=== PATIENT | female | born 1950 | race African-American/Black ===

== ENCOUNTER 2016-03-19 22:09 | Inpatient (IN) ==
[2016-03-19] MEDS ORDERED: ALUM/MAG/SIMETH/LIDO VISC 1:1 30 ML BOTTLE PO STA (23:50)
[2016-03-19] MEDS ORDERED: SODIUM CHLORIDE 0.9% 1,000 ML IV STA (23:50)
[2016-03-19] MEDS ORDERED: HYDROmorphone 2 MG/1 ML VIAL IV STA (23:50)
[2016-03-19] MEDS ORDERED: ONDANSETRON 4 MG/2 ML VIAL IV STA (23:50)
[2016-03-19] MEDS ORDERED: PANTOPRAZOLE 40 MG VIAL IV STA (23:50)
[2016-03-20] MEDS ORDERED: ONDANSETRON 4 MG/2 ML VIAL ONE (00:45)
[2016-03-20] MEDS ORDERED: PANTOPRAZOLE 40 MG VIAL IV ONE (00:45)
[2016-03-20] MEDS ORDERED: HYDROmorphone 2 MG/1 ML VIAL ONE (00:46)
[2016-03-20] MEDS ORDERED: ALUM/MAG/SIMETH/LIDO VISC 1:1 30 ML BOTTLE PO ONE (00:46)
[2016-03-20 01:15] LABS: Alanine Aminotransferase 16 U/L (13-56); Albumin 4.2 G/DL (3.4-5.0); Alkaline Phosphatase 71 U/L (45-117); Amylase 80 U/L (25-115); Aspartate Amino Transferase 17 U/L (0-37); Bilirubin,Total < 0.39 MG/DL (0.2-1.0); Blood Urea Nitrogen 13 MG/DL (7-18); Calcium 9.2 MG/DL (8.5-10.1); Glucose 134 MG/DL (74-106); Osmolality,Calculated 289.7 MOS/KG (273-304); Potassium 3.6 MMOL/L (3.5-5.1); Sodium 145 MMOL/L (136-145); Total Protein 7.8 G/DL (6.4-8.3); Troponin I Only < 0.015 NG/ML (0.00-0.045)
[2016-03-20 01:36] LABS: Basophils % 0.3 % (0.0-0.8); Eosinophils % 0.3 % (0.00-10.9); Hematocrit 45.6 VOL% (35.7-47.0); Hemoglobin 14.9 GM/DL (12.0-16.0); Immature Granulocytes % 0.4 %; Immature Granulocytes Absolute 0.04 #; Lymphocytes # 1.8 10*3/uL (1.4-4.0); Lymphocytes % 16.4 % (21.3-54.2); Mean Corpuscular HGB Conc 32.7 GM/DL (32-36); Mean Corpuscular Hemoglobin 31 PG (27-34); Mean Corpuscular Volume 93.4 FL (87-102); Monocytes # 0.5 10*3/uL (0.11-0.8); Monocytes % 4.7 % (1.7-12.7); Neutrophils # 8.6 10*3/uL (1.4-7.4); Neutrophils % 77.9 % (38.7-73.9); Platelet Count 262 10*3/uL (130-400); Red Blood Count 4.88 10*6/uL (3.8-5.5); Red Cell Distribution Width 13.1 % (9.3-17.3)
[2016-03-20 02:00] LABS: Apearance,Urine Slightly Hazy (Clear); Bilirubin,Urine Negative (Negative); Blood, Urine Negative (Negative); Glucose,Urine (UA) Negative (Negative); Ketones,Urine 5 mg/dL (Negative); Mucus,Urine Few /LPF (Occasional); Nitrite,Urine Negative (Negative); Protein,Urine 30 MG/DL; RBC,Urine 1 /HPF (0-4); Urine Color Yellow (Yellow); Urine Urobilinogen < 2.0 EU/DL (0.2-1.0); WBC,Urine 1 /HPF (0-6)
--- NOTE | 2016-03-20 03:15 | Emergency Department Note ---
Ariel Mendez Brooke, am scribing for, and in the presence of, Becca Edwards DO 23:57. Jerry Mendez Catherine, DO, personally performed the services described in this documentation, ascribed by Yvette George in my presence, and it is both accurate and complete . Arrival - Arrival Chief Complaint: Abdominal / Flank Pain Stated Complaint: ABDOMINAL PAIN ED Nursing Triage Note: patient to triage with c/o epigastric adb pain that goes all the way through to her back. +N/V. Mode of Arrival: Wheelchair Limitations: No Limitations Source: Patient, Family, RN Notes Reviewed Time Seen by Provider: 03/19/16 23:36 - History of Present Illness HPI Narrative: Patient is a 65 year old female who presents to the ED with c/o epigastric abdominal pain. Shewent to [place] ED, earlier today, and was given a muscle relaxer and omeprazole. Family member says they also done an EKG and xray. Once Patient got home, she took the medications that were prescribed to her and then took a nap. Family member says when the Patient woke up, her pain was worse and that is why they are here. Patient also complains of having nausea and vomiting. She says she has vomited three or four times today. She denies having any fever, chills, diarrhea, or constipation. Patient has PMHx of HTN and dyslipidemia. Onset (ago): day(s) (1) Consistency: constant Severity: moderate Severity scale (1-10): 6 Quality: stabbing, aching, fullness Date of Last Menstrual Period: [facility] Allergies/Adverse Reactions: Allergies Allergy/AdvReac Type Severity Reaction Status Date / Time Amoxicillin [From Augmentin] AdvReac Gastrointestinal Verified 03/19/16 22:21 Upset azithromycin [From Zithromax] AdvReac Gastrointestinal Verified 03/19/16 22:22 Upset clavulanic acid AdvReac Gastrointestinal Verified 03/19/16 22:21 [From Augmentin] Upset naproxen [From Aleve] AdvReac Unknown/Unable Verified 03/19/16 22:21 to obtain Review of System - Review of System 12 point system: reviewed and no additional remarkable complaints except as stated - Review of System Constitutional: Absent: chills, fever Respiratory: Absent: respiratory distress Cardiovascular: Absent: chest pain, orthopnea Gastrointestinal: Present: abdominal pain (epigastric), nausea, vomiting (three or four times today). Absent: diarrhea, constipation Genitourinary female: Absent: dysuria Skin: Absent: rash Neurological: Present: weakness. Absent: headache, numbness, paresthesias, confusion Medical,Surgical,& Family Hx - Medical History Cardio: History of: Hypertension Endocrine: History of: Dyslipidemia - Surgical History Reproductive Surgeries: Surgical HX of;: Hysterectomy - Family History Family History: noncontributory - Social History Smoking Status: Former smoker Have you smoked in the last 12 months: No Frequency of Alcohol Use: None Type of Drug Use: None Marital Status: Unknown Lives With:: Children Functional capacity: independent ambulation Exam Vital Signs: Vital Signs Temperature 97.6 F 03/19/16 22:16 Pulse Rate 71 03/19/16 22:16 Respiratory Rate 18 03/19/16 22:16 Blood Pressure 129/76 03/19/16 22:16 O2 Sat by Pulse Oximetry 97 03/19/16 22:16 - General General appearance: alert, in distress (secondary to her abdominal pain) - Head Head exam: Present: atraumatic, normocephalic - Eye Eye exam: Present: normal appearance, PERRL, EOMI - ENT ENT exam: Present: normal exam, normal oropharynx, mucous membranes moist - Neck Neck exam: Present: normal inspection - Chest Chest inspection: Present: normal inspection, symmetric chest wall rise - Respiratory Respiratory exam: Present: normal lung sounds bilaterally. Absent: accessory muscle use, respiratory distress - Cardiovascular Cardiovascular exam: Present: regular rate, normal rhythm, normal heart sounds - Abdominal Exam Abdominal exam: Present: soft, distention, tenderness, hypoactive bowel sounds, other (Epigastric pain). Absent: guarding, rebound, rigidity - Extremities Exam Extremities exam: Present: normal inspection, full ROM - Back Exam Back exam: Present: normal inspection - Neurological Exam Neurological exam: Present: alert, oriented X3 - Psychiatric Psychiatric exam: Present: normal affect, normal mood - Skin Skin exam: Present: warm, dry, intact, normal color Course Course Narrative: she is resting - i have discussed her ct results with her daughter and she is aware that she is going to be admitted for general surgery evaluation later this morning. - Consultations Consultation #1: Dr. Sejal mauro - we have discussed case and the patient will be admitted for evaluation in the morning. Time: 03:14 Results - Labs CBC & BMP: 03/19/16 23:15 03/19/16 23:15 Lab Results: I have reviewed the patients labs Labs: Laboratory Tests 03/19/16 23:15 Chloride 109 H Glucose 134 H Globulin 3.6 H Lipase 438.0 H Laboratory Tests 03/19/16 03/20/16 23:15 01:55 Neut % (Auto) 77.9 H Lymph % (Auto) 16.4 L Neut # (Auto) 8.6 H Urine Urobilinogen < 2.0 H - EKG EKG results: interpreted by ERMD, no acute changes - Diagnostic Findings Procedure: CT Abdomen and Pelvis: report reviewed by me (Proximal/mid small bowel obstruction with possible left abdominal internal hernia as above. Recommend surgical consultation. Remainder of findings as described above.) Disposition Clinical Impression: Small bowel obstruction Case discussed with: patient, patient's family Disposition: Still a Patient Condition: Stable Time of Disposition: 03:15
[2016-03-20] MEDS ORDERED: ONDANSETRON 4 MG/2 ML VIAL IV PRN ×3 (03:16→18:40)
[2016-03-20] MEDS: SODIUM CHLORIDE 0.9% 1,000 ML IV SCH ×2 (04:26→14:51)
[2016-03-20] MEDS: HYDROmorphone 2 MG/1 ML VIAL IV PRN ×5 (06:46→18:35)
--- NOTE | 2016-03-20 07:24 | CT Report ---
CT abdomen pelvis w con Indication: Abdominal and pelvic pain. CT ABDOMEN AND PELVIS WITH CONTRAST DLP: 665 mGy*cm Comparison: None Technique: Axial CT images of the abdomen and pelvis were obtained with IV contrast; Omnipaque 350, 100 cc. Oral contrast was not administered. Abdomen: Air-fluid levels and borderline small bowel dilatation left midabdomen is present with mesenteric edema noted. This appears to be primarily jejunum and proximal ileum. Transition point is identified left midabdomen. Upstream of this, the duodenum is nondilated the stomach is decompressed. Downstream, there is small amount of stool and gas in the colon. Liver, spleen, pancreas, adrenal glands, gallbladder and kidneys show no acute abnormality. Bibasilar atelectasis noted. Pelvis: Appendix not seen. No right lower quadrant inflammation. Urinary bladder is contracted. Small amount of free fluid in pelvis noted. Uterus is absent. Rectosigmoid colon is unremarkable. Degenerative changes of both hips are moderately severe, with mild arthritic changes of lumbar spine noted. Impression: 1. Dilated small bowel with air-fluid levels and mesenteric edema left midabdomen, consistent with early or partial small bowel obstruction. Internal hernia cannot be excluded. 2. Bibasilar atelectasis. Arthritic changes of the hips. PROCEDURE INTERPRETED AT [facility] Final Report Signed by: New Sarmiento M.D.
--- NOTE | 2016-03-20 08:49 | EKG Report ---
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
[2016-03-20 09:26] LABS: Basophils % 0.1 % (0.0-0.8); Eosinophils % 0.1 % (0.00-10.9); Hematocrit 44.8 VOL% (35.7-47.0); Hemoglobin 14.6 GM/DL (12.0-16.0); Immature Granulocytes % 0.3 %; Immature Granulocytes Absolute 0.03 #; Mean Corpuscular HGB Conc 32.6 GM/DL (32-36); Mean Corpuscular Hemoglobin 30 PG (27-34); Mean Corpuscular Volume 91.6 FL (87-102); Mean Platelet Volume 9.4 FL (9.6-12.0); Monocytes # 0.7 10*3/uL (0.11-0.8); Neutrophils # 8.2 10*3/uL (1.4-7.4); Neutrophils % 75.5 % (38.7-73.9); Platelet Count 266 10*3/uL (130-400); Red Blood Count 4.89 10*6/uL (3.8-5.5); Red Cell Distribution Width 13.2 % (9.3-17.3); White Blood Count 10.9 10*3/uL (4.5-13.71)
[2016-03-20 09:59] LABS: Alanine Aminotransferase 13 U/L (13-56); Albumin 3.7 G/DL (3.4-5.0); Alkaline Phosphatase 68 U/L (45-117); Aspartate Amino Transferase 14 U/L (0-37); Bilirubin,Total < 0.39 MG/DL (0.2-1.0); Blood Urea Nitrogen 11 MG/DL (7-18); Calcium 8.4 MG/DL (8.5-10.1); Glucose 118 MG/DL (74-106); Osmolality,Calculated 287.7 MOS/KG (273-304); Potassium 3.5 MMOL/L (3.5-5.1); Sodium 145 MMOL/L (136-145); Total Protein 6.9 G/DL (6.4-8.3)
--- NOTE | 2016-03-20 10:06 | XRay Report ---
XR chest 1V portable Indication: NG tube placement. Chest/abdomen one view: NG tube extends well into the upper abdomen, Syble clearly beyond the GE junction. Gastric distention is present but mild. Impression: NG tube position as described. PROCEDURE INTERPRETED AT [facility] DEPARTMENT OF RADIOLOGY Final Report Signed by: New Sarmiento M.D.
--- NOTE | 2016-03-20 12:31 | Fluoroscopy Report ---
FL small bowel series Indication: Small bowel obstruction. Small bowel follow-through: Oral contrast (Gastrografin) was administered. Sequential images of the abdomen were obtained. Over a two-hour. Time, no transit to small bowel identified. Gaseous distention bordering on dilation of central small bowel is present. Some stool and gas is shown the colon. Impression: After 2 hours, no transit from the stomach. Severe gastric outlet obstruction and/or ileus. Consider repeat attempt at small bowel follow-through after a period of NG tube decompression. PROCEDURE INTERPRETED AT [facility] DEPARTMENT OF RADIOLOGY Final Report Signed by: New Sarmiento M.D.
--- NOTE | 2016-03-20 13:58 | General Surg History&Physical ---
Assessment and Plan (1) Small bowel obstruction Status: Acute Assessment and plan: The patient has no passes of contrast out of her stomach after hour and half Gastrografin administration. The NG tube. This is concerning that the small bowel obstruction may need to have operative intervention. We will monitor her abdominal exam closely today but I think there is a chance we may have to take her to surgery today if she worsens at all. In the meantime we will continue IV fluid resuscitation and attempt nonoperative management if possible. She is not tachycardic and she has normal white blood cell count and no other lab derangements I think we can at least give her some attempt at nonoperative management. Current Visit: Yes History of Present Illness Chief complaint: abdominal pain History of present illness: Ms. Baig is a 65 year old female with a history of prior hysterectomy and diverticulitis treated with antibiotics in the distant past who presents to the hospital with decreased stool output and abdominal pain with abdominal distention over the past 2 days. Her last normal bowel movement was Monday and she has not had a bowel movement or passed gas since then. She has been having increasing abdominal distention with abdominal pain and had 3 episodes of vomiting last night there was green colored. A CT scan was performed as well as lab work which reveals a small bowel obstruction with decompressed distal bowel and colon. Lab work is normal and the patient is not tachycardic. She improved somewhat overnight with pain medication. I repeated a small bowel series with Gastrografin today and it never left her stomach and she was complaining of increased pain so the study was terminated after an hour and a half and nothing left the stomach. Home Medications Medication Instructions Recorded Confirmed Type Amlodipine Besylate 1 tablet PO DAILY W/SUPPER 03/20/16 03/20/16 History Cyclobenzaprine [Flexeril] 1 tablet PO TID PRN 03/20/16 03/20/16 History Esomeprazole Magnesium 20 mg PO DAILY 03/20/16 03/20/16 History [Esomeprazole] Lisinopril/Hydrochlorothiazide 2 each PO DAILY 03/20/16 03/20/16 History [Lisinopril-Hctz 10-12.5 mg Tab] Lovastatin 20 mg PO DAILY W/SUPPER 03/20/16 03/20/16 History Travoprost 0.004% Oph Soln 1 drop BOTH EYES BEDTIME 03/20/16 03/20/16 History [Travatan Z] Allergies Allergy/AdvReac Type Severity Reaction Status Date / Time Amoxicillin [From Augmentin] AdvReac Gastrointestinal Verified 03/19/16 22:21 Upset azithromycin [From Zithromax] AdvReac Gastrointestinal Verified 03/19/16 22:22 Upset clavulanic acid AdvReac Gastrointestinal Verified 03/19/16 22:21 [From Augmentin] Upset naproxen [From Aleve] AdvReac Unknown/Unable Verified 03/19/16 22:21 to obtain Medical,Surgical,& Family Hx - Medical History Cardio: History of: Hypertension Endocrine: History of: Dyslipidemia Gastrointestinal: History of: Bowel Obstruction (diagnosis this admission) - Surgical History Reproductive Surgeries: Surgical HX of;: Hysterectomy - Family History Family History: Reports;: Family Cancer (two aunts), Family Diabetes (aunt), Family Hypertension (mother, father, siblings), Family Stroke (sister, aunt) - Social History Smoking Status: Former smoker Frequency of Alcohol Use: None Type of Drug Use: None Exam - Constitutional Vitals: Period Temp Pulse Resp BP Sys/Holt Pulse Ox Last 24 Hr 98.4 F-98.9 F 81-108 16-18 133-163/81-98 96-99 General appearance: no acute distress, over weight - Head Head exam: Present: normal inspection, normocephalic - Eye Eye exam: Present: EOMI Pupils: Present: CHIVO - ENT ENT exam: Present: normal exam Mouth exam: Present: normal external inspection, normal voice - Neck Neck exam: Present: normal inspection, trachea midline - Respiratory Respiratory exam: Present: clear to auscultation bilaterally. Absent: accessory muscle use, chest wall tenderness - Cardiovascular Cardiovascular exam: Present: RRR. Absent: systolic murmur, tachycardia - GI/Abdominal GI/Abdominal exam: Present: distended, hypoactive bowel sounds, tenderness, soft. Absent: guarding, rebound - Extremities Exam Extremities exam: Present: normal inspection, normal capillary refill - Back Exam Back exam: Present: normal inspection - Neurological Exam Neurological exam: Present: alert, oriented X3 Speech: Present: normal - Skin Skin exam: Present: normal color, warm - Constitutional Constitutional: Present: as per HPI - EENT Nose, mouth and throat: Present: as per HPI - Cardiovascular Cardiovascular: Present: as per HPI - Respiratory Respiratory: Present: as per HPI - Gastrointestinal Gastrointestinal: Present: as per HPI - Genitourinary Genitourinary: Present: as per HPI - Musculoskeletal Musculoskeletal: Present: as per HPI - Neurological Neurological: Present: as per HPI - Endocrine Endocrine: Present: as per HPI Hematologic/Lymphatic: Present: as per HPI Results - Labs CBC & BMP: 03/20/16 09:20 03/20/16 09:20 - Diagnostic Findings Procedure: CT Abdomen and Pelvis: image reviewed by me, report reviewed by me, X -ray: image reviewed by me, report reviewed by me
[2016-03-20] MEDS ORDERED: FAMOTIDINE 20 MG TABLET PO ONE (14:34)
[2016-03-20] MEDS: LACTATED RINGERS 1,000 ML IV SCH ×4 (14:51→19:54)
--- NOTE | 2016-03-20 14:59 | Event Note ---
The patient had a NG tube placed and we attempted a small bowel series today. My initial note actually reflected a clinical encounter had with the patient before these studies were done around 7 in the morning. I just went back and saw her right before riding this node and she has worsening abdominal pain with increasing heart rate and she is now tachycardic in the 100s. I have recommended proceeding with operative intervention for her bowel obstruction due to worsening clinical status with nonoperative management. The patient is agreeable to this we will take her to the operating room for a laparoscopic with possibility of open lysis of adhesions and possible bowel resection. She will be resuscitated with IV fluids and we will take her to the operating room now.
[2016-03-20] MEDS ORDERED: LIDOCAINE 2% 5 ML VIAL ONE (16:56)
[2016-03-20] MEDS ORDERED: ROCURONIUM 100 MG/10 ML VIAL IV ONE (16:56)
[2016-03-20] MEDS ORDERED: HEPARIN/NACL 0.9% 2 UNITS/ML 500 ML IV ONE (16:56)
[2016-03-20] MEDS ORDERED: SUCCINYLCHOLINE 200 MG/10 ML VIAL ONE (16:56)
[2016-03-20] MEDS ORDERED: PROPOFOL 200 MG/20 ML VIAL IV ONE (16:56)
[2016-03-20] MEDS ORDERED: PHENYLEPHRINE DRIP 20 MG/250 ML PREMIX IV ONE (16:56)
[2016-03-20] MEDS ORDERED: LIDOCAINE 1%/EPI INJ 20 ML VIAL ONE (17:01)
[2016-03-20] MEDS ORDERED: BUPIVACAINE MPF 0.25% /EPI 30 ML VIAL ONE (17:01)
[2016-03-20 17:32] LABS: ABG Base Excess -1.7 MMOL/L (-2.5-2.5); ABG Oxygen Saturation 99.8 % (95-100); ABG PCO2 30.5 MM HG (35-48); ABG PH 7.449 (7.35-7.45); ABG TCO2 18.2 MMOL/L (23-27); Glucose Heart Surgery 144 MG/DL (74-106); Hematocrit Heart Surgery 42.4 PERCENT (37-47); Hemoglobin Heart Surgery 13.8 G/DL (12.0-16.0); PCO2 Patient Temp Arterial 30.5 MMHG; PH Patient Temp Arterial 7.449; Patient Temperature 37 CELCIUS; Potassium Heart/CVR 3.7 MMOL/L (3.5-5.1); Sodium Heart/CVR 140 MMOL/L (135-145)
--- NOTE | 2016-03-20 18:22 | Anesthesia ---
Anesthesia Post OP - Post Ansesthetic Evaluation Patient seen in post op: Yes Resp: within normal limits CV: within normal limits Mental: within normal limits Temp: within normal limits [id number]-[id number]: within normal limits Nausea and Vomiting: within normal limits Pain: within normal limits
[2016-03-20 18:24] LABS: Apearance,Urine Slightly Hazy (Clear); Bilirubin,Urine Negative (Negative); Blood, Urine Negative (Negative); Glucose,Urine (UA) 50 mg/dL (Negative); Ketones,Urine Negative (Negative); Mucus,Urine Moderate /LPF (Occasional); Nitrite,Urine Negative (Negative); Protein,Urine 30 MG/DL; RBC,Urine 1 /HPF (0-4); Squamous Epithelial Cell,Urine Occasional /HPF (0-10); Urine Color Yellow (Yellow); Urine Specific Gravity 1.038 (1.001-1.035); Urine Urobilinogen < 2.0 EU/DL (0.2-1.0); WBC,Urine 2 /HPF (0-6)
[2016-03-20] MEDS ORDERED: ALBUMIN 5% 12.5 GM/250 ML VIAL IV ONE (18:27)
[2016-03-20] MEDS ORDERED: fentaNYL 100 MCG/2 ML VIAL ONE (18:27)
[2016-03-20] MEDS ORDERED: LACTATED RINGERS 2,000 ML IV ONE (18:27)
[2016-03-20] MEDS ORDERED: MIDAZOLAM 2 MG/2 ML VIAL ONE (18:27)
[2016-03-20] MEDS ORDERED: SEVOFLURANE 1 UNIT/15 MINUTE INH ONE (18:27)
[2016-03-20] MEDS ORDERED: SODIUM CHLORIDE 0.9% 250 ML IV ONE (18:27)
--- NOTE | 2016-03-20 18:38 | Operative Note ---
Date of procedure: 03/20/16 Pre-op diagnosis: small bowel obstruction Post-op diagnosis: same Procedure: Preoperative diagnosis Small bowel obstruction Postoperative diagnosis Same Procedures performed 1. Diagnostic laparoscopy 2. Exploratory laparotomy with lysis of adhesions Findings An internal hernia was found with a compromised piece of small intestine herniating through the defect. Once the small bowel was completely reduced from the internal hernia and lysis of adhesions was completed, there was no residual internal hernia defects or adhesive bands left in the abdomen. There was a segment of bowel that initially looked dusky but once it was reduced from the internal hernia it pinked up nicely and did not appear to have any areas of necrosis. The bowel was inflamed and erythematous but it appeared viable. Complications None apparent Anesthesia EDILBERTO Santos Blood loss 10 mL Indications This patient is a 65-year-old woman with a history of a hysterectomy and a prior history of non-comp located diverticulitis managed medically who presented to the hospital with a small bowel obstruction. She was treated nonoperatively with NG tube decompression and observation but her exam worsened during the course of the day and she became tachycardic. I recommended laparoscopic versus open lysis of adhesions with possible bowel resection. Description of procedure The patient was taken to the operating room and transferred to the operating table in the supine position. Pressure points were padded and SCDs were placed to the bilateral lower extremities. A Marr catheter was placed with minimal urine output obtained and appeared concentrated. The abdomen was prepped with chlorhexidine and draped sterilely. Preoperative antibiotics were administered , and a timeout was performed. A supraumbilical incision was made with an 11 blade scalpel and a [place] clamp was used to grasp the umbilical stalk. A Veress needle was used to enter the peritoneal cavity. Aspiration was negative. Saline drop test confirmed intraperitoneal location. The abdomen was insufflated to 15 mmHg and an initial pressure of 4 mmHg. The Veress needle was removed and a 5 mm trocar was placed blindly. A diagnostic laparoscopy revealed no evidence of Veress needle or trocar injury. There was adhesions to the midline between the omentum and the peritoneum and on visualization of the left upper quadrant there is a long segment of small bowel that appeared edematous and dusky. The patient developed some hypotension and worsening hemodynamics and I thought the safest thing to do was to convert to an open procedure at that point in time. The 5 mm trocar was removed and the CO2 was released from the abdomen. A midline incision was made with a 10 blade scalpel and Bovie electrocautery was used to dissected the subcutaneous tissues and open the fascia. An exploratory laparotomy was performed. The small bowel was reduced from the hernia defect and initially appeared dusky with erythema and significant edema. Once reduced, the bowel started to pink up and looked viable. The remainder of the exploration revealed multiple adhesions between the sigmoid colon and the transverse colon which were thought to be potentially the cause of the internal hernia. Adhesions between the omentum and the abdominal wall were also lysed with sharp dissection. There was no adhesive bands seen between the omentum and any portion of the abdominal cavity. The small bowel was fully evaluated after lysis of adhesions was completed from the ligament of Treitz to the ileocecal valve. Once the obstruction was relieved the distal bowel started to fill with bowel contents and a final inspection of the bowel appeared no evidence of compromise of the intestine. The small bowel was placed back into the peritoneal cavity in its anatomic position and the abdomen was suction until all the edema fluid was removed. The midline fascia was closed with a #1 PDS suture. The skin incision was irrigated and closed with skin clips. A sterile dressing was applied. The patient was extubated and transferred to the ICU to monitor her resuscitation and she made minimal output during the operation. Her Marr catheter was left in place. Postoperative plan Continue IV fluid resuscitation Await return of bowel function Anesthesia: EDILBERTO Surgeon / Physician: Bandar Post Estimated blood loss: minimal Specimens: none sent Condition: stable Disposition: ICU Results - Labs CBC & BMP: 03/20/16 17:30 03/20/16 09:20 Discharge Plan - Discharge Medications No Action Lovastatin 20 mg PO DAILY W/SUPPER Lisinopril/Hydrochlorothiazide [Lisinopril-Hctz 10-12.5 mg Tab] 2 each PO DAILY Amlodipine Besylate 1 tablet PO DAILY W/SUPPER Esomeprazole Magnesium [Esomeprazole] 20 mg PO DAILY Travoprost 0.004% Oph Soln [Travatan Z] 1 drop BOTH EYES BEDTIME Cyclobenzaprine [Flexeril] 1 tablet PO TID PRN PRN Reason: Muscle Spasm - Follow Up or Referral - Forms/Instructions
[2016-03-20] MEDS ORDERED: CYCLOBENZAPRINE 10 MG TABLET PO PRN (18:40)
[2016-03-20] MEDS ORDERED: LACTATED RINGERS 1,000 ML IV ONE (18:40)
[2016-03-20] MEDS ORDERED: LABETALOL 20 MG/4 ML SYRINGE IV ONE (18:53)
[2016-03-20] MEDS: HYDROmorphone PCA 30 MG/30 ML SYRINGE IV SCH (18:53)
--- NOTE | 2016-03-20 20:09 | Event Note ---
General Surgery Progress Note Chief complaint This patient is a 65-year-old woman admitted with small bowel obstruction failed nonoperative management and taken to the operating room on 03/20/2016 for diagnostic laparoscopy and exploratory laparotomy with lysis of adhesions Interval history The patient is doing well nicely. Her urine output is clear and his responded well to resuscitation. She is afebrile with hypertension and otherwise normal vital signs. Physical exam Afebrile, normal vital signs The patient's resting comfortably in bed and has clear urine output and the Marr catheter. Assessment and plan Continue pain medication Incentive spirometry Repeat labs in the morning
[2016-03-20] MEDS: TRAVOPROST 0.004% OPH SOLN 2.5 ML BOTTLE BOTH EYES SCH (21:52)
[2016-03-21] MEDS: LACTATED RINGERS 1,000 ML IV SCH ×4 (03:14→19:22)
[2016-03-21 03:37] LABS: Basophils % 0.1 % (0.0-0.8); Eosinophils % 0.1 % (0.00-10.9); Hematocrit 42.2 VOL% (35.7-47.0); Hemoglobin 13.6 GM/DL (12.0-16.0); Immature Granulocytes % 0.4 %; Immature Granulocytes Absolute 0.06 #; Lymphocytes # 2.3 10*3/uL (1.4-4.0); Lymphocytes % 16.1 % (21.3-54.2); Mean Corpuscular HGB Conc 32.2 GM/DL (32-36); Mean Corpuscular Hemoglobin 31 PG (27-34); Mean Corpuscular Volume 94.8 FL (87-102); Mean Platelet Volume 10.2 FL (9.6-12.0); Monocytes # 1.2 10*3/uL (0.11-0.8); Monocytes % 8.6 % (1.7-12.7); Neutrophils # 10.5 10*3/uL (1.4-7.4); Neutrophils % 74.7 % (38.7-73.9); Platelet Count 232 10*3/uL (130-400); Red Blood Count 4.45 10*6/uL (3.8-5.5); Red Cell Distribution Width 13.5 % (9.3-17.3); White Blood Count 14.1 10*3/uL (4.5-13.71)
[2016-03-21 04:21] LABS: Calcium 7.4 MG/DL (8.5-10.1); Osmolality,Calculated 293.4 MOS/KG (273-304)
[2016-03-21] MEDS ORDERED: LACTATED RINGERS 1,000 ML IV ONE ×2 (07:39→10:37)
[2016-03-21] MEDS ORDERED: NON-FORMULARY MEDICATION (Esomeprazole Magnesium [Esomeprazole] 20 MG) PO SCH (09:00)
[2016-03-21] MEDS: PANTOPRAZOLE 40 MG VIAL IV SCH (09:20)
--- NOTE | 2016-03-21 10:38 | Event Note ---
General Surgery Progress Note Chief complaint This patient is a 65-year-old woman admitted with small bowel obstruction failed nonoperative management and taken to the operating room on 03/20/2016 for diagnostic laparoscopy and exploratory laparotomy with lysis of adhesions Interval history The patient became a little more tachycardic overnight and her urine output was low today. 1 L bolus of lactated Ringer's was given her urine output picked up some tachycardia improved. Her pain is well-controlled. Her lab work is reviewed and her creatinine is 1.0.8 yesterday with white blood cell count is gone up to 14,000 and relatively stable hemoglobin. Physical exam Afebrile, normal vital signs after IV fluid resuscitation Chest is clear next an heart is regular and tachycardic Abdomen soft and appropriately tender with a clean dressing and hypoactive bowel sounds NG tube has bilious output The urine in the Marr catheter is concentrated Assessment and plan Continue pain medication Continue IV fluid resuscitation as needed Incentive spirometry Repeat labs in the morning
[2016-03-21] MEDS: ENOXAPARIN 40 MG/0.4 ML SYRINGE SUBCUT SCH (12:29)
[2016-03-21] MEDS: amLODIPine 5 MG TABLET PO SCH (17:43)
[2016-03-21] MEDS: LOVASTATIN 20 MG TABLET PO SCH (17:44)
[2016-03-21] MEDS: TRAVOPROST 0.004% OPH SOLN 2.5 ML BOTTLE BOTH EYES SCH (21:37)
[2016-03-22] MEDS: LACTATED RINGERS 1,000 ML IV SCH ×4 (00:07→14:31)
[2016-03-22 01:21] LABS: Basophils % 0.2 % (0.0-0.8); Eosinophils % 0.4 % (0.00-10.9); Hematocrit 34.7 VOL% (35.7-47.0); Hemoglobin 10.8 GM/DL (12.0-16.0); Immature Granulocytes % 0.5 %; Immature Granulocytes Absolute 0.05 #; Lymphocytes # 2.8 10*3/uL (1.4-4.0); Lymphocytes % 25.7 % (21.3-54.2); Mean Corpuscular HGB Conc 31.1 GM/DL (32-36); Mean Corpuscular Hemoglobin 29 PG (27-34); Mean Corpuscular Volume 94.3 FL (87-102); Mean Platelet Volume 9.9 FL (9.6-12.0); Monocytes # 1.2 10*3/uL (0.11-0.8); Monocytes % 10.6 % (1.7-12.7); Neutrophils # 6.9 10*3/uL (1.4-7.4); Neutrophils % 62.6 % (38.7-73.9); Platelet Count 186 T/CUMM (130-400); Red Blood Count 3.68 MC/CUMM (3.8-5.5); Red Cell Distribution Width 13.4 % (9.3-17.3)
[2016-03-22 01:47] LABS: Calcium 7.8 MG/DL (8.5-10.1); Magnesium 1.9 MG/DL (1.8-2.4); Osmolality,Calculated 289.6 MOS/KG (273-304); Potassium 3.9 MMOL/L (3.5-5.1)
[2016-03-22] MEDS: HYDROmorphone PCA 30 MG/30 ML SYRINGE IV SCH ×2 (05:37→19:27)
--- NOTE | 2016-03-22 11:16 | Event Note ---
General Surgery Progress Note Chief complaint This patient is a 65-year-old woman admitted with small bowel obstruction failed nonoperative management and taken to the operating room on 03/20/2016 for diagnostic laparoscopy and exploratory laparotomy with lysis of adhesions Interval history The patient is doing better today. She denies any flatus or bowel movements. Her NG tube had minimal output. Her pain is better controlled. Urine output has picked up adequately. Creatinine is down trending. Physical exam Afebrile, normal vital Chest is clear Heart is regular Abdomen soft and appropriately tender with a clean dressing and hypoactive bowel sounds The urine in the Marr catheter is clear Assessment and plan Continue pain medication change to maintenance fluids Incentive spirometry transfer to floor DVT chemoprophylaxis Repeat labs in the morning
[2016-03-22] MEDS: PANTOPRAZOLE 40 MG VIAL IV SCH (14:30)
[2016-03-22] MEDS: ENOXAPARIN 40 MG/0.4 ML SYRINGE SUBCUT SCH (14:31)
[2016-03-22] MEDS: DEXT 5% NACL 0.45% KCL 40 MEQ 40 MEQ/1,000 ML BAG IV SCH ×2 (14:32→23:10)
[2016-03-22] MEDS: amLODIPine 5 MG TABLET PO SCH (17:09)
[2016-03-22] MEDS: LOVASTATIN 20 MG TABLET PO SCH (17:09)
[2016-03-22] MEDS: TRAVOPROST 0.004% OPH SOLN 2.5 ML BOTTLE BOTH EYES SCH ×2 (22:56→23:08)
[2016-03-23 03:36] LABS: Basophils % 0.2 % (0.0-0.8); Eosinophils # 0.1 10*3/uL (0.0-0.87); Eosinophils % 1.1 % (0.00-10.9); Hematocrit 33.9 VOL% (35.7-47.0); Hemoglobin 10.9 GM/DL (12.0-16.0); Immature Granulocytes % 0.3 %; Immature Granulocytes Absolute 0.03 #; Lymphocytes # 2.7 10*3/uL (1.4-4.0); Lymphocytes % 27.6 % (21.3-54.2); Mean Corpuscular HGB Conc 32.2 GM/DL (32-36); Mean Corpuscular Hemoglobin 30 PG (27-34); Mean Corpuscular Volume 93.6 FL (87-102); Monocytes # 1.1 10*3/uL (0.11-0.8); Neutrophils # 5.9 10*3/uL (1.4-7.4); Neutrophils % 59.8 % (38.7-73.9); Platelet Count 184 T/CUMM (130-400); Red Blood Count 3.62 MC/CUMM (3.8-5.5); Red Cell Distribution Width 12.9 % (9.3-17.3); White Blood Count 9.9 T/CUMM (4-12)
[2016-03-23 04:03] LABS: Calcium 8.4 MG/DL (8.5-10.1); Magnesium 2.1 MG/DL (1.8-2.4); Osmolality,Calculated 287.7 MOS/KG (273-304); Potassium 4.3 MMOL/L (3.5-5.1)
--- NOTE | 2016-03-23 07:13 | Event Note ---
General Surgery Progress Note Chief complaint This patient is a 65-year-old woman admitted with small bowel obstruction failed nonoperative management and taken to the operating room on 03/20/2016 for diagnostic laparoscopy and exploratory laparotomy with lysis of adhesions Interval history The patient had no events last night. Her transfer to the floor was held because of lack of available beds in the hospital. She's getting up and walking around in the ICU room. She has no nausea or vomiting after NG tube removal and she has also had no gas or bowel movements. Her pain is well- controlled. Physical exam Afebrile, normal vital Chest is clear Heart is regular Abdomen soft and appropriately tender with a clean dressing and hypoactive bowel sounds, the incision is clean Assessment and plan Continue pain medication Start clear liquids and wean IV fluids Incentive spirometry transfer to floor DVT chemoprophylaxis
[2016-03-23] MEDS: PANTOPRAZOLE 40 MG VIAL IV SCH (09:11)
[2016-03-23] MEDS: DEXT 5% NACL 0.45% KCL 40 MEQ 40 MEQ/1,000 ML BAG IV SCH (09:16)
[2016-03-23] MEDS: ENOXAPARIN 40 MG/0.4 ML SYRINGE SUBCUT SCH (15:11)
[2016-03-23] MEDS: LOVASTATIN 20 MG TABLET PO SCH (17:15)
[2016-03-23] MEDS: amLODIPine 5 MG TABLET PO SCH (17:15)
[2016-03-23] MEDS: TRAVOPROST 0.004% OPH SOLN 2.5 ML BOTTLE BOTH EYES SCH (21:45)
[2016-03-24] MEDS: DEXT 5% NACL 0.45% KCL 40 MEQ 40 MEQ/1,000 ML BAG IV SCH ×2 (03:40→22:46)
--- NOTE | 2016-03-24 06:53 | Event Note ---
General Surgery Progress Note Chief complaint This patient is a 65-year-old woman admitted with small bowel obstruction failed nonoperative management and taken to the operating room on 03/20/2016 for diagnostic laparoscopy and exploratory laparotomy with lysis of adhesions Interval history The patient has not passed gas or had a bowel movement yet. She is tolerating liquids without nausea or vomiting. She hasn't gotten up and walk in the hallway yet. Physical exam Afebrile, normal vital Chest is clear Heart is regular Abdomen soft and appropriately tender with a clean dressing and hypoactive bowel sounds, the incision is clean. The abdomen is slightly more distended today. Assessment and plan Continue pain medication Continue clear liquids and low-dose IV fluids The patient needs to get up and start walking around more in the hallway and we will await return of bowel function prior to advancing her diet Incentive spirometry DVT chemoprophylaxis
[2016-03-24] MEDS: PANTOPRAZOLE 40 MG VIAL IV SCH (09:10)
[2016-03-24] MEDS: ENOXAPARIN 40 MG/0.4 ML SYRINGE SUBCUT SCH (12:46)
[2016-03-24] MEDS: LOVASTATIN 20 MG TABLET PO SCH (17:11)
[2016-03-24] MEDS: METOCLOPRAMIDE 10 MG/2 ML VIAL IV SCH ×2 (17:11→23:21)
[2016-03-24] MEDS: ALUMINUM/MAGNES/SIMETH MAX STR 30 ML UDCUP PO PRN (17:11)
[2016-03-24] MEDS: amLODIPine 5 MG TABLET PO SCH (17:11)
[2016-03-24] MEDS: TRAVOPROST 0.004% OPH SOLN 2.5 ML BOTTLE BOTH EYES SCH (20:35)
[2016-03-25] MEDS: METOCLOPRAMIDE 10 MG/2 ML VIAL IV SCH ×4 (05:41→23:49)
[2016-03-25] MEDS ORDERED: HYDROmorphone 2 MG/1 ML VIAL IV PRN (07:06)
--- NOTE | 2016-03-25 07:07 | Event Note ---
General Surgery Progress Note Chief complaint This patient is a 65-year-old woman admitted with small bowel obstruction failed nonoperative management and taken to the operating room on 03/20/2016 for diagnostic laparoscopy and exploratory laparotomy with lysis of adhesions Interval history The patient is passing gas and feeling better every day. She has not had a bowel movement yet. She is tolerating her diet liquids and she would like to have regular food today. She is walking in the hallway some. Her pain is well- controlled. Physical exam Afebrile, normal vital Chest is clear Heart is regular Abdomen soft and appropriately tender with a clean dressing with improved and normal bowel sounds, the incision is clean. The abdomen is less distended than yesterday today. Assessment and plan Wean IV fluids and pain medication Advance to low fiber diet Okay to discharge home tomorrow if doing well Incentive spirometry DVT chemoprophylaxis
[2016-03-25] MEDS: HYDROmorphone PCA 30 MG/30 ML SYRINGE IV SCH (09:03)
[2016-03-25] MEDS: PANTOPRAZOLE 40 MG VIAL IV SCH (09:35)
[2016-03-25] MEDS: LOVASTATIN 20 MG TABLET PO SCH (16:11)
[2016-03-25] MEDS: ENOXAPARIN 40 MG/0.4 ML SYRINGE SUBCUT SCH (16:11)
[2016-03-25] MEDS: amLODIPine 5 MG TABLET PO SCH (16:11)
[2016-03-25] MEDS: ALUMINUM/MAGNES/SIMETH MAX STR 30 ML UDCUP PO PRN ×2 (16:17→20:28)
[2016-03-25] MEDS: TRAVOPROST 0.004% OPH SOLN 2.5 ML BOTTLE BOTH EYES SCH (20:29)
[2016-03-26] MEDS: METOCLOPRAMIDE 10 MG/2 ML VIAL IV SCH ×3 (05:53→18:57)
[2016-03-26] MEDS: PROMETHAZINE 25 MG/1 ML VIAL IM PRN ×2 (05:56→10:08)
[2016-03-26] MEDS: PANTOPRAZOLE 40 MG VIAL IV SCH (10:08)
--- NOTE | 2016-03-26 10:29 | Event Note ---
The patient had nausea and vomiting last night. The patient is afebrile with stable vital. Her abdomen looks okay and is nontender and nondistended. We will recheck lab work and I explained to her she has further nausea and vomiting we will need to place a nasogastric tube and restart IV fluids.
[2016-03-26 10:51] LABS: Basophils % 0.2 % (0.0-0.8); Eosinophils % 0.3 % (0.00-10.9); Hematocrit 42.5 VOL% (35.7-47.0); Hemoglobin 13.9 GM/DL (12.0-16.0); Immature Granulocytes % 0.2 %; Immature Granulocytes Absolute 0.01 #; Lymphocytes # 1.2 10*3/uL (1.4-4.0); Lymphocytes % 20.9 % (21.3-54.2); Mean Corpuscular HGB Conc 32.7 GM/DL (32-36); Mean Corpuscular Hemoglobin 30 PG (27-34); Mean Corpuscular Volume 92.4 FL (87-102); Mean Platelet Volume 10.5 FL (9.6-12.0); Monocytes # 0.7 10*3/uL (0.11-0.8); Monocytes % 11.3 % (1.7-12.7); Neutrophils # 3.9 10*3/uL (1.4-7.4); Neutrophils % 67.1 % (38.7-73.9); Platelet Count 247 T/CUMM (130-400); Red Cell Distribution Width 12.5 % (9.3-17.3); White Blood Count 5.8 T/CUMM (4-12)
[2016-03-26 11:21] LABS: Calcium 9.1 MG/DL (8.5-10.1); Magnesium 2.9 MG/DL (1.8-2.4); Osmolality,Calculated 288.8 MOS/KG (273-304); Potassium 4.2 MMOL/L (3.5-5.1)
[2016-03-26 11:28] LABS: Hypochromasia Slight
[2016-03-26 11:29] LABS: Platelet Estimate Adequate
--- NOTE | 2016-03-26 14:38 | XRay Report ---
Portable chest Date:[03/26/2016] Clinical history: 03/20/2016 Comparison: Nasogastric tube placement Technique: Portable AP sitting chest Findings: The heart is borderline in size. Expiratory chest with atelectasis at the lung bases. Gaseous distention of the stomach with nasogastric tube in the stomach. Degenerative changes are noted. Impression: Nasogastric tube in satisfactory position in the stomach. Reduced gaseous distention of the stomach. Atelectasis at the lung bases. PROCEDURE INTERPRETED AT [facility] Final Report Signed by: Dr. Carolyn Dunaway
[2016-03-26] MEDS: DEXTROSE 5% NACL 0.45% 1,000 ML IV SCH (15:40)
[2016-03-26] MEDS: amLODIPine 5 MG TABLET PO SCH (18:09)
[2016-03-26] MEDS: LOVASTATIN 20 MG TABLET PO SCH (18:09)
[2016-03-26] MEDS: ENOXAPARIN 40 MG/0.4 ML SYRINGE SUBCUT SCH (18:57)
[2016-03-26] MEDS: TRAVOPROST 0.004% OPH SOLN 2.5 ML BOTTLE BOTH EYES SCH (21:43)
[2016-03-27] MEDS: METOCLOPRAMIDE 10 MG/2 ML VIAL IV SCH ×4 (00:12→17:34)
[2016-03-27] MEDS: DEXTROSE 5% NACL 0.45% 1,000 ML IV SCH ×4 (00:12→23:12)
[2016-03-27] MEDS: PANTOPRAZOLE 40 MG VIAL IV SCH (08:30)
--- NOTE | 2016-03-27 10:23 | Event Note ---
We had to replace her nasogastric tube yesterday and start her back on IV fluids. She feels better. Her abdomen is nontender and nondistended and her vital signs are stable.
[2016-03-27] MEDS: ENOXAPARIN 40 MG/0.4 ML SYRINGE SUBCUT SCH (15:19)
[2016-03-27] MEDS: LOVASTATIN 20 MG TABLET PO SCH (17:20)
[2016-03-27] MEDS: amLODIPine 5 MG TABLET PO SCH (17:21)
[2016-03-27] MEDS: TRAVOPROST 0.004% OPH SOLN 2.5 ML BOTTLE BOTH EYES SCH (21:47)
[2016-03-28] MEDS: METOCLOPRAMIDE 10 MG/2 ML VIAL IV SCH ×4 (00:35→17:57)
--- NOTE | 2016-03-28 07:39 | Event Note ---
General Surgery Progress Note Chief complaint This patient is a 65-year-old woman admitted with small bowel obstruction failed nonoperative management and taken to the operating room on 03/20/2016 for diagnostic laparoscopy and exploratory laparotomy with lysis of adhesions Interval history The patient is having bowel movements and passing gas but she developed nausea and vomiting over the weekend and NG tube was replaced. Her labs over the weekend were fairly unremarkable. She is resting comfortably this morning that she had about 2 L of output from her NG tube initially. There is been minimal output since then. The patient states that she was told she was told to stay on bedrest over the weekend. She has not gotten out of bed since I saw her on Monday. Physical exam Afebrile, normal vital Chest is clear Heart is regular Abdomen reveals hypoactive bowel sounds with slight distention. Assessment and plan Continue IV fluids CT scan abdomen and pelvis with by mouth contrast only Continue DVT chemoprophylaxis and SCDs The patient states that she's been laying on her back all weekend and was told to stay on bedrest. I have discussed this with the nursing staff and reiterated the importance of her being up moving around given her what appears to be ileus.
[2016-03-28] MEDS: DEXTROSE 5% NACL 0.45% 1,000 ML IV SCH ×2 (09:19→17:56)
[2016-03-28] MEDS: PANTOPRAZOLE 40 MG VIAL IV SCH (09:19)
[2016-03-28] MEDS: ENOXAPARIN 40 MG/0.4 ML SYRINGE SUBCUT SCH (13:28)
--- NOTE | 2016-03-28 13:43 | CT Report ---
CT abdomen pelvis wo con Indication: Ileus after laparotomy with enterolysis Comparison: CT and pelvis dated March 20, 2016 Technique: Multiple axial tomographic images of the abdomen and pelvis were obtained without use of intravenous contrast. Oral contrast was utilized. Findings: Mild dependent change of the lung bases present. Trace right pleural fluid. No worrisome focal hepatic abnormality. Vicarious excretion of contrast material noted within the gallbladder. Less likely biliary sludge. Pancreas and spleen grossly unchanged. Granulomatous calcifications of the spleen noted. Bilateral adrenal glands and kidneys appear grossly unchanged. No evidence of hydronephrosis. Bilateral renal arterial calcifications present. Urinary bladder incompletely distended. Status post hysterectomy. There is redemonstration of mild dilatation of small bowel within the left mid and upper abdomen laterally measuring up to 3.8 cm. There is no clear-cut transition point. Oral contrast material noted to the rectal level. Mild to moderate atherosclerotic calcifications of the abdominal aorta. Significant degenerative change of the bilateral hips as well as scattered degenerative change of the lumbar spine. Midline superficial skin savi. IMPRESSION: There is redemonstration of mild dilatation of small bowel within the left mid and upper abdomen laterally measuring up to 3.8 cm. There is no clear-cut transition point. Oral contrast material noted to the rectal level. Findings may reflect postop ileus. Trace right pleural fluid and other detailed findings as above. PROCEDURE INTERPRETED AT [facility] DEPARTMENT OF RADIOLOGY Final Report Signed by: Dr Douglas Moreno
[2016-03-28] MEDS ORDERED: LACTATED RINGERS 1,000 ML IV ONE (16:23)
[2016-03-28] MEDS: LOVASTATIN 20 MG TABLET PO SCH (16:40)
[2016-03-28] MEDS: amLODIPine 5 MG TABLET PO SCH (16:41)
[2016-03-28] MEDS: TRAVOPROST 0.004% OPH SOLN 2.5 ML BOTTLE BOTH EYES SCH (21:05)
[2016-03-29] MEDS: METOCLOPRAMIDE 10 MG/2 ML VIAL IV SCH ×4 (00:26→19:25)
[2016-03-29] MEDS: DEXTROSE 5% NACL 0.45% 1,000 ML IV SCH ×2 (02:00→10:52)
[2016-03-29 06:52] LABS: Calcium 7.8 MG/DL (8.5-10.1); Magnesium 2.7 MG/DL (1.8-2.4); Osmolality,Calculated 281.1 MOS/KG (273-304); Potassium 3.6 MMOL/L (3.5-5.1)
--- NOTE | 2016-03-29 07:29 | Event Note ---
General Surgery Progress Note Chief complaint This patient is a 65-year-old woman admitted with small bowel obstruction failed nonoperative management and taken to the operating room on 03/20/2016 for diagnostic laparoscopy and exploratory laparotomy with lysis of adhesions Interval history The patient did not have gas or bowel movement yesterday. CT scan with oral contrast only yesterday demonstrated ileus with no transition point in contrast through into the colon. She did get up and walking the hallway once yesterday. NG tube output is only 300 mL and [place] bilious. Physical exam Afebrile, normal vital Chest is clear Heart is regular Abdomen reveals hypoactive bowel sounds with slight distention. Labs Metabolic panel unremarkable Assessment and plan Change IV fluids to D5 half-normal saline Remove NG tube today At the patient doesn't tolerate liquids today she will need a PICC line and TPN initiated Continue DVT chemoprophylaxis and SCDs increase activity and continue walking in hallway
--- NOTE | 2016-03-29 07:38 | XRay Report ---
XR abdomen 1V Indication: Ileus Comparison: Abdominal CT dated March 28, 2016 Technique: Frontal views of the abdomen Findings: Contrast material noted throughout the colon. Mildly dilated short segment of small bowel within the left upper quadrant measuring up to 3.9 cm with suggestion of associated wall thickening. Close followup recommended. Midline savi noted. Enteric tube noted with distal tip projecting over the proximal stomach and side port within the distal thoracic esophagus. Consider advancing. Scattered degenerative change present. IMPRESSION: As above. PROCEDURE INTERPRETED AT [facility] DEPARTMENT OF RADIOLOGY Final Report Signed by: Dr Douglas Moreno
[2016-03-29] MEDS: PANTOPRAZOLE 40 MG VIAL IV SCH (10:58)
[2016-03-29] MEDS: ENOXAPARIN 40 MG/0.4 ML SYRINGE SUBCUT SCH (12:39)
[2016-03-29] MEDS ORDERED: FAT EMULSION 20% 250 ML IV SCH (14:00)
[2016-03-29] MEDS ORDERED: DEXTROSE 50% 25 GM/50 ML VIAL IV PRN (16:37)
[2016-03-29] MEDS ORDERED: GLUCAGON 1 MG VIAL IM PRN (16:37)
[2016-03-29] MEDS ORDERED: DEXTROSE 10% 1,000 ML IV PRN (17:00)
[2016-03-30] MEDS: METOCLOPRAMIDE 10 MG/2 ML VIAL IV SCH ×4 (02:24→19:30)
[2016-03-30] MEDS: TRAVOPROST 0.004% OPH SOLN 2.5 ML BOTTLE BOTH EYES SCH ×2 (02:25→21:46)
[2016-03-30] MEDS: INSULIN REGULAR 100 UNIT/ML SUBCUT SCH ×5 (02:26→20:57)
[2016-03-30] MEDS: DEXTROSE 5% NACL 0.45% 1,000 ML IV SCH ×3 (03:10→12:20)
[2016-03-30 05:48] LABS: Magnesium 2.8 MG/DL (1.8-2.4); Osmolality,Calculated 285.7 MOS/KG (273-304); Potassium 3.5 MMOL/L (3.5-5.1)
[2016-03-30 05:50] LABS: Prealbumin 13.8 MG/DL (20-40)
--- NOTE | 2016-03-30 07:51 | Event Note ---
General Surgery Progress Note Chief complaint This patient is a 65-year-old woman admitted with small bowel obstruction failed nonoperative management and taken to the operating room on 03/20/2016 for diagnostic laparoscopy and exploratory laparotomy with lysis of adhesions Interval history The patient's NG tube was removed overnight and she had a big bowel movement this morning and is passing gas. No nausea or vomiting. She feels hungry. She walked in the hallway once yesterday evening but it is still limited. Physical exam Afebrile, normal vital Chest is clear Heart is regular Abdomen reveals hypoactive bowel sounds with no distention Labs Metabolic panel unremarkable Assessment and plan Continue IV fluids Low fiber diet today I was going to start PICC line and TPN but the patient is hungry and she is having bowel movements so we will give one more attempt at a diet prior to submitting her to this. Repeat abdominal x-ray today as well. Continue DVT chemoprophylaxis and SCDs increase activity and continue walking in hallway
[2016-03-30] MEDS: PANTOPRAZOLE 40 MG VIAL IV SCH (09:49)
[2016-03-30] MEDS: ENOXAPARIN 40 MG/0.4 ML SYRINGE SUBCUT SCH (12:28)
--- NOTE | 2016-03-30 14:18 | XRay Report ---
Exam: XR abdomen 1V Date: 03/30/2016 4:00 AM Comparison: 03/29/2016 Indication: Ileus Technique:[Supine abdomen] Findings: Removal of the nasogastric tube. Mild gaseous distention of the stomach. Residual gaseous distention of the small bowel measuring 46 mm compared to 39 mm on the previous exam. Diminished gas in the colon with persistent increased fecal material. Post operative findings are noted. Degenerative changes are redemonstrated. Impression: Removal of nasogastric tube with progressive gaseous distention of the stomach and small bowel consistent with postoperative ileus or SBO. Follow-up x-ray recommended. Retained contrast in the colon. PROCEDURE INTERPRETED AT [facility] DEPARTMENT OF RADIOLOGY Final Report Signed by: Dr. Carolyn Dunaway
[2016-03-30] MEDS ORDERED: TRACE ELEMENTS (5) 1 ML, MULTIVITAMIN INJ 10 ML in AMINO ACIDS/DEXT/LYTES 5-15% 2,000 ML IV SCH (17:00)
[2016-03-30] MEDS: amLODIPine 5 MG TABLET PO SCH ×2 (17:40→20:57)
[2016-03-30] MEDS: LOVASTATIN 20 MG TABLET PO SCH ×2 (17:40→20:56)
[2016-03-31] MEDS: INSULIN REGULAR 100 UNIT/ML SUBCUT SCH ×3 (00:20→13:44)
[2016-03-31] MEDS: METOCLOPRAMIDE 10 MG/2 ML VIAL IV SCH ×3 (00:24→13:44)
--- NOTE | 2016-03-31 07:13 | Discharge Summary ---
Hospital Course - Hospital Course Hospital Course: The patient was admitted with small bowel obstruction and she failed nonoperative management. She was taken to the operating room for laparotomy after laparoscopy was converted due to instability and she had an internal hernia with a band that was divided. Lysis of adhesions was completed and no bowel was resected. She developed an ileus postoperatively but eventually resolved. He got her up and started moving around more. The patient was discharged home tolerating a diet with no abdominal pain or nausea or vomiting and having regular bowel movements passing normal gas amounts. She was scheduled for follow-up in clinic in 1 week after discharge and her savi were removed prior to discharge. Diagnosis - Discharge Diagnosis (1) Small bowel obstruction Status: Acute Discharge Plan - Discharge Data Disposition: Disch To Home/Self Care Condition at Discharge: Stable Discharge Diet: advance to your usual diet Activity: no lifting Hygiene: may shower Weight Bearing at Discharge: full weight bearing Driving: not until seen by doctor Contact your physician if you experience:: fever over 101, Difficulty voiding, Redness or swelling, Nausea/Vomiting, Shortness of breath, Bleeding, pain uncontrolled by pain medications Wound / Dressing Care Instructions: It is okay to shower. Leave Steri-Strips in place and they will fall off on their own. - Discharge Medications New HYDROcodone/ACETAMIN 5-325 [[place] 5-325] 1 tablet PO Q4H PRN #30 tablet PRN Reason: Abdominal Pain Continue Lovastatin 20 mg PO DAILY W/SUPPER Lisinopril/Hydrochlorothiazide [Lisinopril-Hctz 10-12.5 mg Tab] 2 each PO DAILY Amlodipine Besylate 1 tablet PO DAILY W/SUPPER Esomeprazole Magnesium [Esomeprazole] 20 mg PO DAILY Travoprost 0.004% Oph Soln [Travatan Z] 1 drop BOTH EYES BEDTIME Cyclobenzaprine [Flexeril] 1 tablet PO TID PRN PRN Reason: Muscle Spasm - Follow Up or Referral Follow Up: Bandar Post MD [Physician] - 1 Week - Forms/Instructions Exam - Constitutional Vitals: Period Temp Pulse Resp BP Sys/Holt Pulse Ox Last 24 Hr 96.7 F-98.1 F 80-94 16-20 121-142/72-93 96-99 General appearance: no acute distress, over weight - Head Head exam: Present: normal inspection, normocephalic - Eye Eye exam: Present: EOMI Pupils: Present: CHIVO - ENT ENT exam: Present: normal exam - Neck Neck exam: Present: normal inspection - Respiratory Respiratory exam: Present: clear to auscultation bilaterally. Absent: accessory muscle use, chest wall tenderness - Cardiovascular Cardiovascular exam: Present: regular rate and rhythm. Absent: systolic murmur , tachycardia - GI/Abdominal GI/Abdominal exam: Present: normal bowel sounds, soft, other (incision is clean , dry, and intact). Absent: tenderness, rebound - Extremities Exam Extremities exam: Present: normal inspection, normal capillary refill - Back Exam Back exam: Present: normal inspection - Neurological Exam Neurological exam: Present: alert, oriented X3 - Psychiatric Psychiatric exam: Present: normal affect, normal mood Discharge Results Labs on day of discharge: Labs from last 24 hours 03/31/16 03/31/16 03/30/16 06:21 00:19 17:44 POC Glucose 103 100 101 03/30/16 11:41 POC Glucose 93 DS: Provider Date of admission: 03/20/16 03:15 Primary care physician: . No PCP Attending physician on admission: Bandar Post MD Consults: 03/29/16 16:29 Consult to Dietitian [CONS] Routine Reason for Dietitian: TPN/PPN-Initiate/Manage Discharging clinician: Bandar Post MD Expected date of discharge: 03/31/16
[2016-03-31] MEDS: PANTOPRAZOLE 40 MG VIAL IV SCH (08:26)
[2016-03-31 10:58] VITALS: BP 131/68
[2016-03-31] MEDS: ENOXAPARIN 40 MG/0.4 ML SYRINGE SUBCUT SCH (13:44)
[2016-03-31] MEDS ORDERED: TRACE ELEMENTS (5) 1 ML, MULTIVITAMIN INJ 10 ML in AMINO ACIDS/DEXT/LYTES 5-15% 2,000 ML IV SCH (17:00)
== END 2016-03-31 12:52 | disposition home or self-care (01) | DRG 337 ==
LOC: EDBD → N.ED 22:09 → N.EDINP 03-20 03:15 → N.3E 03-20 03:35 → N.ICU 03-20 18:20 → N.4E 03-23 11:26
PROVIDERS: ADMIT Surgery; ATTEND Surgery

== ENCOUNTER 2020-01-06 10:58 | Observation (INO) ==
[2020-01-06 11:47] LABS: Basophils % 0.6 % (0.0-0.8); Eosinophils # 0.1 10*3/uL (0.0-0.87); Hematocrit 44.5 VOL% (35.7-47.0); Hemoglobin 14.7 GM/DL (12.0-16.0); Immature Granulocytes % 0.3 %; Immature Granulocytes Absolute 0.02 #; Lymphocytes # 2.1 10*3/uL (1.4-4.0); Lymphocytes % 28.9 % (21.3-54.2); Mean Corpuscular Volume 93.9 FL (87-102); Monocytes % 11.1 % (1.7-12.7); Neutrophils % 57.1 % (38.7-73.9); Platelet Count 146 T/CUMM (130-400); Red Blood Count 4.74 MC/CUMM (3.8-5.5); Red Cell Distribution Width 13.4 % (9.3-17.3); White Blood Count 7.1 T/CUMM (4-12)
[2020-01-06 12:21] LABS: Bilirubin,Urine Negative (Negative); Blood, Urine Moderate mg/dL (Negative); Glucose,Urine (UA) Negative (Negative); Ketones,Urine Negative (Negative); Mucus,Urine Occasional /LPF (Occasional); Nitrite,Urine Negative (Negative); Protein,Urine Negative; RBC,Urine 41 /HPF (0-4); Squamous Epithelial Cell,Urine Occasional /HPF (0-10); Urine Appearance CLEAR (Clear); Urine Color Yellow (Yellow); Urine Specific Gravity 1.012 (1.001-1.035); Urine Urobilinogen < 2.0 EU/DL (0.2-1.0); WBC,Urine 2 /HPF (0-6)
[2020-01-06 12:37] LABS: Alanine Aminotransferase 12 U/L (13-56); Albumin 3.8 G/DL (3.4-5.0); Alkaline Phosphatase 89 U/L (45-117); Aspartate Amino Transferase 22 U/L (0-37); Bilirubin,Total < 0.39 MG/DL (0.2-1.0); Blood Urea Nitrogen 21 MG/DL (7-18); Calcium 9.4 MG/DL (8.5-10.1); Estimated Glom Filtration Rate 57 ML/MIN; Glucose 93 MG/DL (74-106); Osmolality,Calculated 279.5 MOS/KG (273-304); Total Protein 7.6 G/DL (6.4-8.3)
[2020-01-06] MEDS ORDERED: DEXTROSE 50% 25 GM/50 ML VIAL IV PRN (16:24)
[2020-01-06] MEDS ORDERED: ONDANSETRON 4 MG/2 ML VIAL IV PRN (16:24)
[2020-01-06] MEDS ORDERED: GLUCAGON 1 MG VIAL IM PRN (16:24)
[2020-01-06] MEDS: SODIUM CHLORIDE 0.9% 1,000 ML IV SCH (18:48)
[2020-01-06] MEDS: ENOXAPARIN 40 MG/0.4 ML SYRINGE SUBCUT SCH (18:48)
[2020-01-06] MEDS: CLINDAMYCIN 300 MG CAPSULE PO SCH ×2 (18:49→23:24)
[2020-01-06] MEDS: PANTOPRAZOLE 40 MG TABLET PO SCH (18:49)
[2020-01-06] MEDS: MELOXICAM 7.5 MG TABLET PO SCH (23:23)
[2020-01-06] MEDS: ACETAMINOPHEN 325 MG TABLET PO PRN (23:24)
[2020-01-06] MEDS: TAMSULOSIN 0.4 MG CAPSULE PO SCH (23:24)
[2020-01-06] MEDS: TRAVOPROST 0.004% OPH SOLN 2.5 ML BOTTLE BOTH EYES SCH (23:24)
[2020-01-07] MEDS: CLINDAMYCIN 300 MG CAPSULE PO SCH ×4 (04:53→22:43)
[2020-01-07] MEDS: ACETAMINOPHEN 325 MG TABLET PO PRN ×3 (05:16→22:44)
[2020-01-07 06:49] LABS: Basophils % 0.5 % (0.0-0.8); Eosinophils # 0.2 10*3/uL (0.0-0.87); Eosinophils % 2.8 % (0.00-10.9); Hematocrit 40.3 VOL% (35.7-47.0); Hemoglobin 13.1 GM/DL (12.0-16.0); Immature Granulocytes % 0.3 %; Immature Granulocytes Absolute 0.02 #; Lymphocytes # 2.3 10*3/uL (1.4-4.0); Lymphocytes % 38.2 % (21.3-54.2); Mean Corpuscular HGB Conc 32.5 GM/DL (32-36); Mean Corpuscular Volume 95.5 FL (87-102); Mean Platelet Volume 10.1 FL (9.6-12.0); Monocytes % 11.1 % (1.7-12.7); Neutrophils % 47.1 % (38.7-73.9); Platelet Count 201 T/CUMM (130-400); Red Blood Count 4.22 MC/CUMM (3.8-5.5); Red Cell Distribution Width 13.1 % (9.3-17.3); White Blood Count 6.1 T/CUMM (4-12)
[2020-01-07 08:01] LABS: Alanine Aminotransferase 13 U/L (13-56); Albumin 3.1 G/DL (3.4-5.0); Alkaline Phosphatase 74 U/L (45-117); Aspartate Amino Transferase 27 U/L (0-37); Bilirubin,Total < 0.39 MG/DL (0.2-1.0); Blood Urea Nitrogen 14 MG/DL (7-18); Calcium 8.8 MG/DL (8.5-10.1); Estimated Glom Filtration Rate 90 ML/MIN; Glucose 117 MG/DL (74-106); Osmolality,Calculated 282.3 MOS/KG (273-304); Total Protein 6.5 G/DL (6.4-8.3)
[2020-01-07] MEDS: amLODIPine 10 MG TABLET PO SCH (09:39)
[2020-01-07] MEDS: MELOXICAM 7.5 MG TABLET PO SCH ×2 (09:39→22:44)
[2020-01-07] MEDS: PANTOPRAZOLE 40 MG TABLET PO SCH (09:39)
[2020-01-07] MEDS: TAMSULOSIN 0.4 MG CAPSULE PO SCH ×2 (09:39→22:44)
[2020-01-07] MEDS: SIMVASTATIN 20 MG TABLET PO SCH (09:49)
[2020-01-07] MEDS: ENOXAPARIN 40 MG/0.4 ML SYRINGE SUBCUT SCH (17:17)
[2020-01-07] MEDS: TRAVOPROST 0.004% OPH SOLN 2.5 ML BOTTLE BOTH EYES SCH (22:47)
[2020-01-08] MEDS: CLINDAMYCIN 300 MG CAPSULE PO SCH ×3 (06:03→17:54)
[2020-01-08] MEDS: SODIUM CHLORIDE 0.9% 1,000 ML IV SCH ×3 (06:04→16:45)
[2020-01-08 06:44] LABS: Calcium 8.7 MG/DL (8.5-10.1); Osmolality,Calculated 283.8 MOS/KG (273-304)
[2020-01-08] MEDS: SIMVASTATIN 20 MG TABLET PO SCH (09:08)
[2020-01-08] MEDS: amLODIPine 10 MG TABLET PO SCH (09:08)
[2020-01-08] MEDS: MELOXICAM 7.5 MG TABLET PO SCH (09:09)
[2020-01-08] MEDS: PANTOPRAZOLE 40 MG TABLET PO SCH (09:09)
[2020-01-08] MEDS: TAMSULOSIN 0.4 MG CAPSULE PO SCH (09:09)
[2020-01-08] MEDS: ACETAMINOPHEN 325 MG TABLET PO PRN (14:31)
[2020-01-08 16:04] VITALS: BP 112/59
[2020-01-08] MEDS: ENOXAPARIN 40 MG/0.4 ML SYRINGE SUBCUT SCH (16:45)
== END 2020-01-08 17:45 | disposition home or self-care (01) ==
LOC: EDUNIT# → EDBD → N.EDINP 10:58 → N.ED 10:58 → N.EDINP 19:31 → N.4E 20:07
PROVIDERS: ADMIT Family Medicine; ATTEND Family Medicine